=== PATIENT | male | born 1985 | race African-American/Black ===

== ENCOUNTER 2021-08-14 09:24 | Inpatient (IN) | payer OTHER ==
[2021-08-14] MEDS ORDERED: diazePAM 5 MG TABLET PO PRN (10:10)
[2021-08-14] MEDS ORDERED: NICOTINE 10 MG CARTRIDGE (INHALER) IH PRN (10:10)
[2021-08-14] MEDS ORDERED: IBUPROFEN 400 MG TABLET (FP) PO PRN (10:10)
[2021-08-14] MEDS ORDERED: MAG HYDROX/AL HYDROX/SIMETH 30 ML UNIT-DOSE CUP PO PRN (10:10)
[2021-08-14] MEDS ORDERED: METHOCARBAMOL 500 MG TABLET PO PRN (10:10)
[2021-08-14] MEDS ORDERED: MENTHOL/PHENOL 1 EACH UD MM PRN (10:10)
[2021-08-14] MEDS ORDERED: MAGNESIUM HYDROX 2400MG/30ML ORAL SUSPENSION 30 ML CUP PO PRN (10:10)
[2021-08-14] MEDS ORDERED: ONDANSETRON *ODT* 4 MG TABLET SL PRN (10:10)
[2021-08-14] MEDS ORDERED: MAGNESIUM CITRATE 300 ML BOTTLE PO PRN (10:10)
[2021-08-14] MEDS ORDERED: ACETAMINOPHEN 325 MG TABLET (FP) PO PRN ×2 (10:10)
[2021-08-14] MEDS ORDERED: BISMUTH SUBSALICYLATE 262 MG/15 ML BTL PO PRN (10:10)
[2021-08-14 10:18] VITALS: BMI 19.5
[2021-08-14] MEDS: diazePAM 5 MG TABLET PO SCH ×3 (11:33→22:44)
[2021-08-14] MEDS: NICOTINE 7 MG/24 HOURS TOPICAL PATCH TD SCH (11:44)
[2021-08-14] MEDS: PRENATAL VITAMINS W/ FOLIC ACID TABLET (FP) PO SCH (11:44)
[2021-08-14 13:54] LABS: HEMATOCRIT 43.7 % (35.4-49); HEMOGLOBIN 14.5 GM/dL (11.7-16.9); MCH 31.1 pg (25.7-33.7); MCHC 33.1 g/dl (32.0-35.9); MEAN CELL VOLUME 93.8 fl (80-96); MEAN PLT VOLUME 8.4 fl (7.5-11.1); PLATELET COUNT 307 10^3/uL (134-434); RBC 4.66 M/mm3 (4.00-5.60); RDW 15.1 % (11.9-15.9); WHITE BLOOD COUNT 7.6 K/mm3 (4.0-10.0)
[2021-08-14 13:59] LABS: BLOOD UREA NITROGEN 17.2 mg/dL (7-18); CALCIUM 9.7 mg/dL (8.5-10.1)
[2021-08-14 14:04] LABS: BILIRUBIN,TOTAL 0.8 mg/dL (0.2-1); TOT PROT 7.6 g/dl (6.4-8.2)
[2021-08-14 14:05] LABS: ALBUMIN 4.1 g/dl (3.4-5.0)
[2021-08-14] MEDS: hydrOXYzine PAMOATE 25 MG CAPSULE (FP) PO SCH ×2 (17:57→22:44)
[2021-08-14] MEDS: ARTIFICIAL TEARS (POLYVINYL ALCOHOL) OPTH DROPS OU PRN (18:30)
[2021-08-14] MEDS: ALBUTEROL SO4 HFA INHALER IH PRN (22:42)
[2021-08-14] MEDS: HYDROCORTISONE 1% TOPICAL CREAM 30 GM TUBE TP SCH (22:43)
[2021-08-14] MEDS: MELATONIN 5 MG TABLETS PO SCH (22:44)
[2021-08-14] MEDS: THIAMINE HCL 100 MG TABLET (FP) PO SCH (22:44)
[2021-08-15] MEDS: ARTIFICIAL TEARS (POLYVINYL ALCOHOL) OPTH DROPS OU PRN ×4 (03:47→22:26)
[2021-08-15] MEDS: diazePAM 5 MG TABLET PO SCH ×4 (05:45→22:23)
[2021-08-15] MEDS: hydrOXYzine PAMOATE 25 MG CAPSULE (FP) PO SCH ×5 (10:46→22:23)
[2021-08-15] MEDS: NICOTINE 7 MG/24 HOURS TOPICAL PATCH TD SCH (10:47)
[2021-08-15] MEDS: HYDROCORTISONE 1% TOPICAL CREAM 30 GM TUBE TP SCH ×2 (10:47→22:24)
[2021-08-15] MEDS: PRENATAL VITAMINS W/ FOLIC ACID TABLET (FP) PO SCH (10:47)
[2021-08-15] MEDS: ALBUTEROL SO4 HFA INHALER IH PRN (18:00)
[2021-08-15 21:14] VITALS: BP 123/60; PULSE 88; TEMP 98
[2021-08-15] MEDS: MELATONIN 5 MG TABLETS PO SCH (22:23)
[2021-08-15] MEDS: THIAMINE HCL 100 MG TABLET (FP) PO SCH (22:23)
[2021-08-16] MEDS ORDERED: diazePAM 5 MG TABLET PO SCH (06:00)
[2021-08-17] MEDS ORDERED: diazePAM 5 MG TABLET PO SCH (06:00)
[2021-08-18] MEDS ORDERED: diazePAM 5 MG TABLET PO ONE (06:00)
== END 2021-08-15 23:51 | disposition left against medical advice (07) | DRG 770 ==
LOC: YASAS 09:24 → Y3N 10:22
PROVIDERS: ADMIT Allergy & Immunology; ATTEND Allergy & Immunology
PROC: HZ2ZZZZ Detoxification Services for Substance Abuse Treatment (ICD-10-PCS; principal; 2021-08-14)
DX: F10.230 Alcohol dependence with withdrawal, uncomplicated (principal); F10.282 Alcohol dependence with alcohol-induced sleep disorder; F12.20 Cannabis dependence, uncomplicated; F17.210 Nicotine dependence, cigarettes, uncomplicated; F33.9 Major depressive disorder, recurrent, unspecified; J45.909 Unspecified asthma, uncomplicated; H04.123 Dry eye syndrome of bilateral lacrimal glands; H61.23 Impacted cerumen, bilateral; Z91.51 Personal history of suicidal behavior; Z56.0 Unemployment, unspecified; Z59.00 Homelessness unspecified
CPT/HCPCS: 36415; 80053; 85027; 86780; 93005; 93010; C9803; U0003; U0005

== ENCOUNTER 2022-02-23 13:16 | Inpatient (IN) | payer OTHER ==
[2022-02-23 13:58] VITALS: BMI 20.2
[2022-02-23] MEDS ORDERED: BENZOCAINE/MENTHOL (CHLORASEPTIC ) LOZENGE MM PRN (14:31)
[2022-02-23] MEDS ORDERED: NICOTINE POLACRILEX 2 MG GUM BUC PRN (14:31)
[2022-02-23] MEDS ORDERED: hydrOXYzine PAMOATE 25 MG CAPSULE (FP) PO PRN (14:31)
[2022-02-23] MEDS ORDERED: MAGNESIUM CITRATE 300 ML BOTTLE PO PRN (14:31)
[2022-02-23] MEDS ORDERED: ONDANSETRON *ODT* 4 MG TABLET SL PRN (14:31)
[2022-02-23] MEDS ORDERED: IBUPROFEN 400 MG TABLET (FP) PO PRN (14:31)
[2022-02-23] MEDS ORDERED: LOPERAMIDE HCL 2 MG CAPSULE PO PRN (14:31)
[2022-02-23] MEDS ORDERED: guaiFENesin 200 MG/10 ML 10 ML UNIT-DOSE CUPS PO PRN (14:31)
[2022-02-23] MEDS ORDERED: IBUPROFEN 600 MG TABLET (FP) PO PRN (14:31)
[2022-02-23] MEDS ORDERED: DICYCLOMINE HCL 10 MG CAPSULE PO PRN (14:31)
[2022-02-23] MEDS ORDERED: P-EPHED 60MG/TRIPROLIDI 2.5MG TABLET PO PRN (14:31)
[2022-02-23] MEDS ORDERED: MAG HYDROX/AL HYDROX/SIMETH 30 ML UNIT-DOSE CUP PO PRN (14:31)
[2022-02-23] MEDS ORDERED: MAGNESIUM HYDROX 2400MG/30ML ORAL SUSPENSION 30 ML CUP PO PRN (14:31)
[2022-02-23] MEDS ORDERED: ACETAMINOPHEN 325 MG TABLET (FP) PO PRN ×2 (14:31)
[2022-02-23] MEDS ORDERED: BISMUTH SUBSALICYLATE 524 MG/30 ML PO PRN (14:31)
[2022-02-23] MEDS ORDERED: METHOCARBAMOL 500 MG TABLET PO PRN (14:31)
[2022-02-23] MEDS ORDERED: diazePAM 5 MG TABLET PO PRN (15:02)
[2022-02-23] MEDS: diazePAM 5 MG TABLET PO SCH ×2 (18:07→22:35)
[2022-02-23] MEDS: MELATONIN 5 MG TABLETS PO SCH (22:34)
[2022-02-23] MEDS: THIAMINE HCL 100 MG TABLET (FP) PO SCH (22:34)
[2022-02-24] MEDS: diazePAM 5 MG TABLET PO SCH ×4 (07:26→22:35)
[2022-02-24] MEDS: PRENATAL VITAMINS W/ FOLIC ACID TABLET (FP) PO SCH (10:17)
[2022-02-24 10:39] LABS: CALCIUM 8.8 mg/dL (8.5-10.1)
[2022-02-24 10:40] LABS: ALBUMIN 3.3 g/dl (3.4-5.0); BLOOD UREA NITROGEN 15.7 mg/dL (7-18)
[2022-02-24 10:43] LABS: CREATININE 0.6 mg/dL (0.55-1.3)
[2022-02-24 10:44] LABS: BILIRUBIN,TOTAL 0.4 mg/dL (0.2-1); TOT PROT 6.1 g/dl (6.4-8.2)
[2022-02-24 11:00] LABS: HEMATOCRIT 40.2 % (35.4-49); HEMOGLOBIN 13.1 GM/dL (11.7-16.9); MCH 30.4 pg (25.7-33.7); MCHC 32.5 g/dl (32.0-35.9); MEAN CELL VOLUME 93.3 fl (80-96); MEAN PLT VOLUME 7.9 fl (7.5-11.1); PLATELET COUNT 259 10^3/uL (134-434); RBC 4.31 M/mm3 (4.00-5.60); RDW 13.9 % (11.9-15.9); WHITE BLOOD COUNT 4.7 K/mm3 (4.0-10.0)
[2022-02-24] MEDS ORDERED: COLLOIDAL OATMEAL 1 BAR EACH TP PRN (12:55)
[2022-02-24] MEDS: ARTIFICIAL TEARS (POLYVINYL ALCOHOL) OPTH DROPS OU SCH ×2 (13:36→22:34)
[2022-02-24] MEDS: AMMONIUM LACTATE 12% LOTION 225 GM BOTTLE TP SCH ×2 (13:36→22:34)
[2022-02-24] MEDS: NICOTINE 10 MG CARTRIDGE (INHALER) IH PRN ×2 (13:38→18:20)
[2022-02-24] MEDS: THIAMINE HCL 100 MG TABLET (FP) PO SCH (22:35)
[2022-02-24] MEDS: MELATONIN 5 MG TABLETS PO SCH (22:35)
[2022-02-25] MEDS: diazePAM 5 MG TABLET PO SCH ×2 (05:12→14:35)
[2022-02-25] MEDS: ARTIFICIAL TEARS (POLYVINYL ALCOHOL) OPTH DROPS OU SCH ×2 (05:12→14:35)
[2022-02-25 09:20] VITALS: BP 149/79; PULSE 70; TEMP 98
[2022-02-25] MEDS: AMMONIUM LACTATE 12% LOTION 225 GM BOTTLE TP SCH (10:24)
[2022-02-25] MEDS: PRENATAL VITAMINS W/ FOLIC ACID TABLET (FP) PO SCH (10:24)
[2022-02-26] MEDS ORDERED: diazePAM 5 MG TABLET PO SCH (06:00)
[2022-02-27] MEDS ORDERED: diazePAM 5 MG TABLET PO ONE (06:00)
== END 2022-02-25 13:45 | disposition left against medical advice (07) | DRG 770 ==
LOC: YASAS 13:16 → Y3N 14:12
PROVIDERS: ADMIT Allergy & Immunology; ATTEND Surgery
PROC: HZ2ZZZZ Detoxification Services for Substance Abuse Treatment (ICD-10-PCS; principal; 2022-02-21)
DX: F10.230 Alcohol dependence with withdrawal, uncomplicated (principal); F12.20 Cannabis dependence, uncomplicated; F17.210 Nicotine dependence, cigarettes, uncomplicated; F32.A Depression, unspecified; J45.20 Mild intermittent asthma, uncomplicated; Z28.310 Unvaccinated for COVID-19; Z59.00 Homelessness unspecified
CPT/HCPCS: 36415; 80053; 85027; 86780

== ENCOUNTER 2022-05-17 11:55 | Inpatient (IN) | payer OTHER ==
[2022-05-17 12:29] VITALS: BMI 21.8
[2022-05-17] MEDS ORDERED: BENZOCAINE/MENTHOL (CHLORASEPTIC ) LOZENGE MM PRN (12:50)
[2022-05-17] MEDS ORDERED: IBUPROFEN 600 MG TABLET (FP) PO PRN (12:50)
[2022-05-17] MEDS ORDERED: BISMUTH SUBSALICYLATE 524 MG/30 ML PO PRN (12:50)
[2022-05-17] MEDS ORDERED: METHOCARBAMOL 500 MG TABLET PO PRN (12:50)
[2022-05-17] MEDS ORDERED: MAGNESIUM HYDROX 2400MG/30ML ORAL SUSPENSION 30 ML CUP PO PRN (12:50)
[2022-05-17] MEDS ORDERED: DICYCLOMINE HCL 10 MG CAPSULE PO PRN (12:50)
[2022-05-17] MEDS ORDERED: NICOTINE POLACRILEX 2 MG GUM BUC PRN (12:50)
[2022-05-17] MEDS ORDERED: P-EPHED 60MG/TRIPROLIDI 2.5MG TABLET PO PRN (12:50)
[2022-05-17] MEDS ORDERED: LOPERAMIDE HCL 2 MG CAPSULE PO PRN (12:50)
[2022-05-17] MEDS ORDERED: guaiFENesin 200 MG/10 ML 10 ML UNIT-DOSE CUPS PO PRN (12:50)
[2022-05-17] MEDS ORDERED: MAG HYDROX/AL HYDROX/SIMETH 30 ML UNIT-DOSE CUP PO PRN (12:50)
[2022-05-17] MEDS ORDERED: ACETAMINOPHEN 325 MG TABLET (FP) PO PRN ×2 (12:50)
[2022-05-17] MEDS ORDERED: IBUPROFEN 400 MG TABLET (FP) PO PRN (12:50)
[2022-05-17] MEDS ORDERED: ONDANSETRON *ODT* 4 MG TABLET SL PRN (12:50)
[2022-05-17] MEDS ORDERED: MELATONIN 5 MG TABLETS PO PRN (12:50)
[2022-05-17] MEDS ORDERED: MAGNESIUM CITRATE 300 ML BOTTLE PO PRN (12:50)
[2022-05-17] MEDS ORDERED: diazePAM 5 MG TABLET PO PRN (12:53)
[2022-05-17] MEDS: diazePAM 5 MG TABLET PO SCH ×2 (17:24→22:29)
[2022-05-17] MEDS: THIAMINE HCL 100 MG TABLET (FP) PO SCH (22:29)
[2022-05-18] MEDS: diazePAM 5 MG TABLET PO SCH ×4 (05:56→22:24)
[2022-05-18] MEDS: PRENATAL VITAMINS W/ FOLIC ACID TABLET (FP) PO SCH (10:42)
[2022-05-18] MEDS: hydrOXYzine PAMOATE 25 MG CAPSULE (FP) PO PRN ×2 (10:43→22:27)
[2022-05-18] MEDS: SERTRALINE HCL 50 MG TABLET (FP) PO SCH (10:44)
[2022-05-18 10:59] LABS: HEMATOCRIT 42.3 % (35.4-49); HEMOGLOBIN 14.2 GM/dL (11.7-16.9); MCH 30.5 pg (25.7-33.7); MCHC 33.6 g/dl (32.0-35.9); MEAN CELL VOLUME 90.9 fl (80-96); MEAN PLT VOLUME 7.7 fl (7.5-11.1); PLATELET COUNT 244 10^3/uL (134-434); RBC 4.65 M/mm3 (4.00-5.60); RDW 12.7 % (11.9-15.9); WHITE BLOOD COUNT 4.9 K/mm3 (4.0-10.0)
[2022-05-18 11:14] LABS: ALBUMIN 3.4 g/dl (3.4-5.0); BLOOD UREA NITROGEN 13.1 mg/dL (7-18)
[2022-05-18 11:17] LABS: CREATININE 0.8 mg/dL (0.55-1.3)
[2022-05-18 11:20] LABS: BILIRUBIN,TOTAL 1.2 mg/dL (0.2-1); TOT PROT 6.2 g/dl (6.4-8.2)
[2022-05-18] MEDS: THIAMINE HCL 100 MG TABLET (FP) PO SCH (22:24)
[2022-05-18] MEDS: SUVOREXANT 10 MG TABLET PO PRN (22:25)
[2022-05-19] MEDS: hydrOXYzine PAMOATE 25 MG CAPSULE (FP) PO PRN (05:46)
[2022-05-19] MEDS: diazePAM 5 MG TABLET PO SCH ×3 (05:46→22:14)
[2022-05-19] MEDS: PRENATAL VITAMINS W/ FOLIC ACID TABLET (FP) PO SCH (10:37)
[2022-05-19] MEDS: SERTRALINE HCL 50 MG TABLET (FP) PO SCH (10:37)
[2022-05-19] MEDS ORDERED: ARTIFICIAL TEARS (POLYVINYL ALCOHOL) OPTH DROPS OU ONE (14:00)
[2022-05-19] MEDS: MINERAL OIL/PETROLAT/WATER TOPICAL CREAM 113 GM JAR TP SCH ×2 (14:07→22:39)
[2022-05-19] MEDS: THIAMINE HCL 100 MG TABLET (FP) PO SCH (22:14)
[2022-05-19] MEDS: SUVOREXANT 10 MG TABLET PO PRN (22:15)
[2022-05-20] MEDS ORDERED: diazePAM 5 MG TABLET PO SCH (06:00)
[2022-05-20 06:18] VITALS: TEMP 97.5
[2022-05-20 08:52] VITALS: BP 121/79; PULSE 58; RESP 16
[2022-05-20] MEDS: SERTRALINE HCL 50 MG TABLET (FP) PO SCH (09:53)
[2022-05-20] MEDS: PRENATAL VITAMINS W/ FOLIC ACID TABLET (FP) PO SCH (09:53)
[2022-05-20] MEDS: MINERAL OIL/PETROLAT/WATER TOPICAL CREAM 113 GM JAR TP SCH (09:53)
[2022-05-21] MEDS ORDERED: diazePAM 5 MG TABLET PO ONE (06:00)
== END 2022-05-20 10:46 | disposition home or self-care (01) | DRG 775 ==
LOC: YASAS 11:55 → Y3N 13:49
PROVIDERS: ADMIT Allergy & Immunology; ATTEND Surgery
PROC: HZ2ZZZZ Detoxification Services for Substance Abuse Treatment (ICD-10-PCS; principal; 2022-05-17)
DX: F10.230 Alcohol dependence with withdrawal, uncomplicated (principal); F12.20 Cannabis dependence, uncomplicated; F17.210 Nicotine dependence, cigarettes, uncomplicated; F10.282 Alcohol dependence with alcohol-induced sleep disorder; F10.24 Alcohol dependence with alcohol-induced mood disorder; J45.20 Mild intermittent asthma, uncomplicated; Z28.310 Unvaccinated for COVID-19; Z28.9 Immunization not carried out for unspecified reason; Z56.0 Unemployment, unspecified; Z59.00 Homelessness unspecified
CPT/HCPCS: 36415; 80053; 85027; 86780; C9803-CS; U0003; U0005

== ENCOUNTER 2022-08-09 10:03 | Inpatient (IN) | payer OTHER ==
[2022-08-09 12:23] VITALS: BMI 20.9
[2022-08-09] MEDS ORDERED: MAGNESIUM HYDROX 2400MG/30ML ORAL SUSPENSION 30 ML CUP PO PRN (13:10)
[2022-08-09] MEDS ORDERED: BISMUTH SUBSALICYLATE 524 MG/30 ML PO PRN (13:10)
[2022-08-09] MEDS ORDERED: IBUPROFEN 400 MG TABLET (FP) PO PRN (13:10)
[2022-08-09] MEDS ORDERED: BENZOCAINE/MENTHOL (CHLORASEPTIC ) LOZENGE MM PRN (13:10)
[2022-08-09] MEDS ORDERED: MAG HYDROX/AL HYDROX/SIMETH 30 ML UNIT-DOSE CUP PO PRN (13:10)
[2022-08-09] MEDS ORDERED: NICOTINE 10 MG CARTRIDGE (INHALER) IH PRN (13:10)
[2022-08-09] MEDS ORDERED: chlordiazePOXIDE HCL 25 MG CAPSULE PO PRN (13:10)
[2022-08-09] MEDS ORDERED: ACETAMINOPHEN 325 MG TABLET (FP) PO PRN ×2 (13:10)
[2022-08-09] MEDS ORDERED: NALOXONE HCL (KLOXXADO) 8 MG SPRAY NS PRN (13:10)
[2022-08-09] MEDS ORDERED: DICYCLOMINE HCL 10 MG CAPSULE PO PRN (13:10)
[2022-08-09] MEDS ORDERED: ONDANSETRON *ODT* 4 MG TABLET SL PRN (13:10)
[2022-08-09] MEDS ORDERED: LOPERAMIDE HCL 2 MG CAPSULE PO PRN (13:10)
[2022-08-09] MEDS ORDERED: IBUPROFEN 600 MG TABLET (FP) PO PRN (13:10)
[2022-08-09] MEDS ORDERED: POLYETHYLENE GLYCOL (HEALTHYLAX) 3350 17 GM PACKET PO PRN (13:10)
[2022-08-09] MEDS: hydrOXYzine PAMOATE 25 MG CAPSULE (FP) PO PRN (14:47)
[2022-08-09] MEDS: METHOCARBAMOL 500 MG TABLET PO PRN (14:47)
[2022-08-09] MEDS: chlordiazePOXIDE HCL 25 MG CAPSULE PO SCH ×2 (17:43→22:43)
[2022-08-09] MEDS: MELATONIN 5 MG TABLETS PO SCH (22:43)
[2022-08-09] MEDS: THIAMINE HCL 100 MG TABLET (FP) PO SCH (22:43)
[2022-08-10] MEDS: chlordiazePOXIDE HCL 25 MG CAPSULE PO SCH ×4 (06:31→22:47)
[2022-08-10 09:44] LABS: HEMOGLOBIN 14.7 GM/dL (11.7-16.9); MCH 28.3 pg (25.7-33.7); MCHC 31.9 g/dl (32.0-35.9); MEAN CELL VOLUME 88.4 fl (80-96); MEAN PLT VOLUME 7.8 fl (7.5-11.1); PLATELET COUNT 341 10^3/uL (134-434); RDW 14.5 % (11.9-15.9); WHITE BLOOD COUNT 5.7 K/mm3 (4.0-10.0)
[2022-08-10 10:03] LABS: CALCIUM 9.7 mg/dL (8.5-10.1)
[2022-08-10 10:04] LABS: ALBUMIN 3.4 g/dl (3.4-5.0); BLOOD UREA NITROGEN 12.6 mg/dL (7-18)
[2022-08-10 10:08] LABS: BILIRUBIN,TOTAL 0.4 mg/dL (0.2-1); TOT PROT 6.9 g/dl (6.4-8.2)
[2022-08-10] MEDS: PRENATAL VITAMINS W/ FOLIC ACID TABLET (FP) PO SCH (10:55)
[2022-08-10] MEDS: METHOCARBAMOL 500 MG TABLET PO PRN (10:56)
[2022-08-10] MEDS: hydrOXYzine PAMOATE 25 MG CAPSULE (FP) PO PRN (10:56)
[2022-08-10 16:01] LABS: HIV INTERPRETATION NEGATIVE (NEGATIVE)
[2022-08-10] MEDS: MELATONIN 5 MG TABLETS PO SCH (22:47)
[2022-08-10] MEDS: THIAMINE HCL 100 MG TABLET (FP) PO SCH (22:47)
[2022-08-11] MEDS: chlordiazePOXIDE HCL 25 MG CAPSULE PO SCH ×4 (06:04→22:53)
[2022-08-11] MEDS: PRENATAL VITAMINS W/ FOLIC ACID TABLET (FP) PO SCH (10:50)
[2022-08-11] MEDS: hydrOXYzine PAMOATE 25 MG CAPSULE (FP) PO PRN (17:30)
[2022-08-11] MEDS: THIAMINE HCL 100 MG TABLET (FP) PO SCH (22:52)
[2022-08-11] MEDS: MELATONIN 5 MG TABLETS PO SCH (22:52)
[2022-08-12] MEDS ORDERED: chlordiazePOXIDE HCL 10 MG CAPSULE PO PRN
[2022-08-12] MEDS: chlordiazePOXIDE HCL 10 MG CAPSULE PO SCH ×4 (06:14→22:24)
[2022-08-12] MEDS: PRENATAL VITAMINS W/ FOLIC ACID TABLET (FP) PO SCH (10:25)
[2022-08-12] MEDS: hydrOXYzine PAMOATE 25 MG CAPSULE (FP) PO PRN ×2 (17:30→22:25)
[2022-08-12] MEDS: THIAMINE HCL 100 MG TABLET (FP) PO SCH (22:24)
[2022-08-12] MEDS: MELATONIN 5 MG TABLETS PO SCH (22:25)
[2022-08-13] MEDS ORDERED: chlordiazePOXIDE HCL 10 MG CAPSULE PO SCH (05:00)
[2022-08-13 09:08] VITALS: BP 103/51; PULSE 71; RESP 18; TEMP 98
[2022-08-13] MEDS: hydrOXYzine PAMOATE 25 MG CAPSULE (FP) PO PRN (10:16)
[2022-08-13] MEDS: PRENATAL VITAMINS W/ FOLIC ACID TABLET (FP) PO SCH (10:16)
[2022-08-14] MEDS ORDERED: chlordiazePOXIDE HCL 10 MG CAPSULE PO ONE (05:00)
== END 2022-08-13 11:27 | disposition home or self-care (01) | DRG 774 ==
LOC: YASAS 10:03 → Y6N 14:07
PROVIDERS: ADMIT Allergy & Immunology; ATTEND Surgery
PROC: HZ2ZZZZ Detoxification Services for Substance Abuse Treatment (ICD-10-PCS; principal; 2022-08-09)
DX: F10.230 Alcohol dependence with withdrawal, uncomplicated (principal); F14.20 Cocaine dependence, uncomplicated; F12.20 Cannabis dependence, uncomplicated; F17.210 Nicotine dependence, cigarettes, uncomplicated; J45.20 Mild intermittent asthma, uncomplicated; S00.83XS Contusion of other part of head, sequela; X58.XXXS Exposure to other specified factors, sequela; Z59.00 Homelessness unspecified
CPT/HCPCS: 36415; 80053; 85027; 86780; 87389; C9803-CS; Q0162; U0003; U0005